=== PATIENT | male | born 1990 | race Caucasian/White ===

== ENCOUNTER 2019-08-11 11:55 | Emergency (ER) | payer OTHER, SELFPAY ==
[~2019-08-11] VITALS: Ht 175.3 cm; Wt 83.9 kg
[2019-08-11 12:05] VITALS: Ht 175.3 cm; Wt 83.9 kg
[2019-08-11 12:34] VITALS: BP 134/96
== END 2019-08-11 12:34 | disposition home or self-care (01) ==
LOC: ED 11:55
DX: R06.02 Shortness of breath (principal); M79.10 Myalgia, unspecified site; R50.9 Fever, unspecified

== ENCOUNTER 2020-03-16 15:22 | Emergency (ER) | payer OTHER, SELFPAY ==
[~2020-03-16] VITALS: Ht 175.3 cm; Wt 83.9 kg
[2020-03-16 15:25] VITALS: Ht 175.3 cm; Wt 83.9 kg
[2020-03-16 17:20] VITALS: BP 129/90
== END 2020-03-16 17:20 | disposition home or self-care (01) ==
LOC: ED 15:22
DX: M79.10 Myalgia, unspecified site (principal); R09.81 Nasal congestion; F17.210 Nicotine dependence, cigarettes, uncomplicated; Z20.828 Contact with and (suspected) exposure to other viral communicable diseases
CPT/HCPCS: U0003

== ENCOUNTER 2020-06-11 11:59 | Emergency (ER) | payer OTHER ==
[~2020-06-11] VITALS: Ht 172.7 cm; Wt 86.2 kg
[2020-06-11 12:16] VITALS: Ht 172.7 cm; Wt 86.2 kg
[2020-06-11 12:57] LABS: BASOPHIL % 0.9 % (0.2-1.5); PLATELET COUNT 272 x10^3mcL (152-348); RED CELL DISTRIBUTION WIDTH 13.3 % (12.1-16.2)
[2020-06-11 13:05] LABS: CALCIUM 8.3 mg/dL (8.5-10.1); CARBON DIOXIDE 26.5 mmol/L (21-32); CHLORIDE SERUM 104 mmol/L (98-107); CREATININE SERUM 1.1 mg/dL (0.7-1.3); GFR1 > 60 mL/min; GLUCOSE SERUM 107 mg/dL (74-106); POTASSIUM SERUM 3.8 mmol/L (3.5-5.1); SODIUM SERUM 137 mmol/L (136-145)
[2020-06-11 13:10] LABS: ALKALINE PHOSPHATASE 70 U/L (46-116); ALT/SGPT 43 U/L (16-63); AST/SGOT 29 U/L (15-37); BILIRUBIN TOTAL 1.1 mg/dL (0.20-1.00); CHOLESTEROL 148 mg/dL (<200); HDL CHOLESTEROL 33 mg/dL (40-60); LIPASE 91 IU/L (73-393); TOTAL PROTEIN, SERUM 7.6 g/dL (6.4-8.2)
[2020-06-11 13:23] LABS: microscopic required? NO
[2020-06-11 13:49] LABS: UA SPECIFIC GRAVITY 1.025 (1.005-1.035); urine erythrocyte NEGATIVE (NEGATIVE)
[2020-06-11 14:14] LABS: AMPHETAMINE QUAL UR POSITIVE (See below)
[2020-06-11 15:01] VITALS: BP 118/72
== END 2020-06-11 15:04 | disposition home or self-care (01) ==
LOC: ED 11:59
PROVIDERS: Emergency Medicine
DX: F19.20 Other psychoactive substance dependence, uncomplicated (principal); F41.9 Anxiety disorder, unspecified; F17.210 Nicotine dependence, cigarettes, uncomplicated
CPT/HCPCS: 83880; 99406; J1630; J2060